=== PATIENT | male | born 1960 | race Hispanic/Latino ===

== ENCOUNTER 2024-12-28 09:40 | Emergency (ER) | payer SELFPAY ==
[~2024-12-28] VITALS: Ht 167.6 cm; Wt 81.6 kg
[2024-12-28 09:54] VITALS: PULSE 62; RESP 16; TEMP 98
[2024-12-28] MEDS ORDERED: NAPROXEN250 MG PO (11:35)
[2024-12-28 11:49] VITALS: BP 140/75; PULSE 68; RESP 16; TEMP 98; O2SAT 98
== END 2024-12-28 11:45 | disposition home or self-care (01) ==
LOC: ER 09:46
DX: S63.592A Other specified sprain of left wrist, initial encounter (principal); S09.8XXA Other specified injuries of head, initial encounter; M54.50 Low back pain, unspecified; W18.39XA Other fall on same level, initial encounter; Y93.01 Activity, walking, marching and hiking; Y99.0 Civilian activity done for income or pay
CPT/HCPCS: 70450; 72125; 72131; 99283